=== PATIENT | female | born 1970 | race Caucasian/White ===

== ENCOUNTER 2017-01-29 19:43 | Emergency (ER) | payer OTHER ==
--- NOTE | 2017-01-29 20:18 | DIAGNOSTIC IMAGING REPORT ---
PROCEDURE: XR KNEE 4 VIEWS - RIGHT INDICATION: TRAUMA/INJURY TECHNIQUE: Four views. COMPARISON: None. FINDINGS: Osseous structures and joint spaces are normal. No effusion. IMPRESSION: 1. Normal left knee.
--- NOTE | 2017-01-29 21:07 | ED NURSING NOTES ---
Clinical Report - Nurses [facility] [address] [place] [address] 01/29/2017 19:43 Patient: GENNA REGALADO TRIAGE Triage time 1950. Acuity: LEVEL 4. Chief Complaint: INJURY TO RIGHT KNEE. 19:50. --20:11 Sindi Clark R.N. 19:50 01/29/17. BP: 126/61. HR: 80. RR: 16. O2 saturation: 98%. Temp: 98.2 F. Pain level now: 09/26. Additional comments: 3-sitting, 9-standing. --20:11 Sindi Clark R.N. Weight: 78.4 kg stated. Height/Length: 58 inches Per Patient. BMI: 36.1. --20:01 Sindi Clark R.N. Medications MetFORMIN HCl Oral (Tablet 500 mg) 1 tablet, 2x a day. --20:03 Sindi Clark R.N. Methocarbamol Oral 750 mg, 4x a day. --20:04 Sindi Clark R.N. Estradiol Oral (Tablet 1 mg) 1 tablet, daily. Multivitamins Oral 1 pill, daily. --20:04 Sindi Clark R.N. Allergies Aleve.(rash) --20:09 Sindi Clark R.N. silver nitrate- continued damage to tissue (kept burning). --20:10 Sindi Clark R.N. The following entry was struck by Sindi Clark R.N., 20:09 (01/29/17) Reason - other. <<STRICKEN ENTRY-- Sulfa Antibiotics. (rash) --20:08 Sindi Clark R.N. --END STRIKE>>. History Arrived by private vehicle. Historian: patient. Accompanied by spouse. Primary physician (stephani). This occurred (1600). Mechanism of injury: sustained a twisting injury. ( jumped up to touch door frame, came down on knee with twisting motion. c/o knee pain with swelling, hurts to walk on it). She has had trouble walking. PAST MEDICAL HX: Diabetes mellitus. ( migraines). SURGERY HX: . Cholecystectomy. Had hysterectomy. Oophorectomy. SOCIAL HX: Light tobacco smoker (cigarette)- less than 1/2 a pack per day. No alcohol use or drug use. --20:11 Sindi Clark R.N. Interventions ID band on patient. To treatment room. --20:11 Sindi Clark R.N. PHYSICAL ASSESSMENT 19:50. Ambulatory to room. Patient gowned. GENERAL / NEURO / PSYCH: Oriented X 4. Alert. Appears in pain. EXTREMITIES: Pain with weight bearing. Limping gait. Right knee: tenderness and swelling. Limited ROM secondary to pain. SKIN: Skin is warm and dry. --20:12 Sindi Clark R.N. NURSING PROGRESS NOTES 19:50. Cold pack applied. Reassurance given. Patient identifiers checked. Call light placed in reach. Side rails up. Bed placed in lowest position. Patient ready for evaluation- chart flagged. --20:11 Sindi Clark R.N. 20:03. ( port x-ray at bedside to do knee films). --20:11 Sindi Clark R.N. 21:05 01/29/2017 Ultram (TraMADol HCl) PO Tablets 50 mg given. Allergies verified, confirmed 5 rights and sedative warning given to the patient. --21:11 Sindi Clark R.N. 21:30. 6 inch rachelle bandage applied to right knee; distal pulses intact, sensation intact and motor function within normal limits. --22:36 Sindi Clark R.N. DISPOSITION / DISCHARGE 21:45. Condition at departure: stable. No learning barriers present. Discharge instructions provided and reviewed with the patient and spouse. Reviewed medication(s) (ultram, motrin). Treatments reviewed (ice, rachelle rest). Patient and spouse verbalized understanding. Written instructions provided in Monegasque. The patient was discharged home and accompanied by spouse. She left the Emergency Department in a wheelchair and via private vehicle. Spouse driving. --22:39 Sindi Clark R.N. 21:45 01/29/17. BP: 120/68. HR: 78. RR: 18. O2 saturation: 97%. Temp: deferred. Pain level now: 09/26. --22:39 Sindi Clark R.N. Locked/Released at 01/29/2017 22:39 by Sindi Clark R.N.
--- NOTE | 2017-01-29 21:07 | ED CLINICAL REPORT ---
Clinical Report - Physicians/Mid Levels [facility] [address] [place] [address] 01/29/2017 19:43 Patient: GENNA REGALADO Time Seen: 19:53; upon arrival, initial patient contact, initial documentation, patient care assumed. Arrived- By private vehicle. Historian- patient. HISTORY OF PRESENT ILLNESS Chief Complaint: Injury to right knee. The injury happened today. Occurred at work. ( jumped up in air and when she landed she felt pain in her knee). Patient is experiencing moderate pain. Patient denies injury to the head or neck. No other injury. REVIEW OF SYSTEMS The patient complains of pain on weight bearing. No swelling, tingling, weakness, numbness or suspected foreign body. No skin laceration. All systems otherwise negative, except as recorded above. PAST HISTORY See nurses notes. Diabetes mellitus. Migraine headaches. Surgeries: Had hysterectomy. Oophorectomy. SOCIAL HISTORY Light tobacco smoker. No alcohol use or drug use. No recent travel. Is a local resident. FAMILY HISTORY No significant family medical history. ADDITIONAL NOTES The nursing notes have been reviewed with agreement regarding the chief complaint, HPI, ROS, PMH and patient medications and allergies. PHYSICAL EXAM Appearance: Alert. Oriented X3. No acute distress. Head: Head atraumatic. Eyes: Pupils equal, round and reactive to light. Eyes normal inspection. Respiratory: No respiratory distress. Skin: Skin intact. Skin warm and dry. Normal skin color. Normal skin turgor. Extremities: Right knee: mild tenderness located in the infrapatellar area. Neurovascular intact distally. No ligamentous laxity present. No joint effusion. No erythema, swelling, laceration, abrasion or ecchymosis. No puncture wound, foreign body or deformity. No limitation in ROM. Lower extremity exam otherwise negative. Extremities otherwise negative. Neuro, Vascular and Tendons: Vascular status intact. Sensation intact. Motor intact. Tendon function intact. Neuro: Oriented X 3. No motor deficit. No sensory deficit. Note: isolated injury to knee. LABS, X-RAYS, AND EKG X-Rays: Right knee negative. Rt Knee X-ray: (IMPRESSION: 1. Normal left knee. Electronically Final signed by:Javon Maynard MD 01/29/2017 8:17:35 PM). PROGRESS AND PROCEDURES Patient counseled in person regarding the patient's stable condition, test results and diagnosis. 20:19. Differential Diagnosis: I considered fracture, stress fracture, bone contusion, sprain, hyperextension, dislocation, meniscus tear, anterior cruciate ligament tear, ligament tear, soft tissue injury, soft tissue hematoma, myositis, fasciitis, tendonitis and bursitis as a possible cause of lower extremity pain in this patient. This is a partial list of diagnoses considered. Above considerations are based on history, physical exam, reassessment and X-Ray data. Differential diagnosis was discussed with patient. Disposition: Discharged home in good and improved condition (21:07). Condition: good and stable. CLINICAL IMPRESSION Sprain of the anterior cruciate ligament of the left knee. INSTRUCTIONS Apply ice for 20 minutes four times a day for one days until better. Don't apply ice directly to skin. Wear elastic wrap (Eladio wrap) as directed for one weeks until better. Elevate affected areas above chest level for one days until better. Warnings: GENERAL WARNINGS: Return or contact your physician immediately if your condition worsens or changes unexpectedly, if not improving as expected, or if other problems arise. Specifically return if problem worsens. Prescription Medications: Ultram 50 mg tablets: take 1-2 orally every 6 hours as needed for pain. Dispense twenty (20). No refills. Substitution is permissible. Follow-up: Follow up with your doctor in about one week as needed. Call for an appointment. Summary of care provided to patient. Understanding of the discharge instructions verbalized by patient. (Electronically signed by Ranjana Fernandez A.R.N.P. 01/29/2017 21:44)
--- NOTE | 2017-01-29 21:07 | ED ORDER SUMMARY ---
..... Patient: GENNA REGALADO OrderSheet [facility] VisitID: [id number] [address] [place] [address] 46y, F Registration Date/Time: 01/29/2017 ORDER SHEET Weight: 78.4 kg (stated) Allergies: Aleve, silver nitrate- continued damage to tissue (kept burning) GENERAL ORDERS: Knee 4V Right Urgent (20:00 01/29/2017 HBivens A.R.N.P.) (Ack 20:04 RKaruga) (20:08 MCampbell) Eladio Wrap (20:49 01/29/2017 HBivens A.R.N.P.) (21:11 DDean R.N.) MEDICATION ORDERS: Ultram PO 50 mg (NOW) (20:49 01/29/2017 HBivens A.R.N.P.) (Ack 21:03 DDean R.N.) (21:11 DDean R.N.) IV FLUIDS: ORDER SHEET NOTES: [Electronically signed by Ranjana Fernandez.R.N.P. (21:44 01/29/2017)] [Electronically signed by Sindi Clark R.N. (22:39 01/29/2017)] [Electronically locked/signed by Sindi Clark R.N. (22:39 01/29/2017)]
--- NOTE | 2017-01-29 21:07 | ED ORDER SUMMARY ---
..... Patient: GENNA REGALADO OrderSheet [facility] VisitID: [id number] [address] [place] [address] 46y, F Registration Date/Time: 01/29/2017 ORDER SHEET Weight: 78.4 kg (stated) Allergies: Aleve, silver nitrate- continued damage to tissue (kept burning) GENERAL ORDERS: Knee 4V Right Urgent (20:00 01/29/2017 HBivens A.R.N.P.) (Ack 20:04 RKaruga) (20:08 MCampbell) Eladio Wrap (20:49 01/29/2017 HBivens A.R.N.P.) (21:11 DDean R.N.) MEDICATION ORDERS: Ultram PO 50 mg (NOW) (20:49 01/29/2017 HBivens A.R.N.P.) (Ack 21:03 DDean R.N.) (21:11 DDean R.N.) IV FLUIDS: ORDER SHEET NOTES: [Electronically signed by Ranjana Fernandez.R.N.P. (21:44 01/29/2017)] [Electronically signed by Sindi Clark R.N. (22:39 01/29/2017)] [Electronically locked/signed by Sindi Clark R.N. (22:39 01/29/2017)]
--- NOTE | 2017-01-29 22:39 | ED MED RECONCILIATION SUMMARY ---
Patient: GENNA REGALADO Medication Reconciliation Report [facility] VisitID: [id number] [address] [place] [address] 46y, F Registration Date/Time: 01/29/2017 Weight: 78.4 kg Height/Length: 58 in. BMI: 36.1 ALLERGIES: Aleve, silver nitrate- continued damage to tissue (kept burning) The patient's Home Medications are listed below: THE FOLLOWING MEDICATIONS NEED TO BE RECONCILED: Estradiol Oral (1 mg) 1 tablet, daily MetFORMIN HCl Oral (500 mg) 1 tablet, 2x a day Methocarbamol Oral 750 mg, 4x a day Multivitamins Oral 1 pill, daily The source(s) of the original Home Medication information: Not obtained. The following Medications were given to the patient in the Emergency Department: Ultram [PO] PO 50 mg, administered: 01/29/2017 9:05:00 PM The following Medications were prescribed to the patient: Ultram 50 mg tablets: take 1-2 orally every 6 hours as needed for pain. Dispense twenty (20). No refills. Substitution is permissible. -- Ranjana Fernandez A.R.N.P.
--- NOTE | 2017-01-29 22:39 | ED DISCHARGE INSTRUCTIONS ---
Patient: GENNA REGALADO General Instructions [facility] VisitID: [id number] [address] [place] [address] 46y, F Registration Date/Time: 01/29/2017 Sprain of the anterior cruciate ligament of the left knee. INSTRUCTIONS Apply ice for 20 minutes four times a day for one days until better. Don't apply ice directly to skin. Wear elastic wrap (Eladio wrap) as directed for one weeks until better. Elevate affected areas above chest level for one days until better. Warnings: GENERAL WARNINGS: Return or contact your physician immediately if your condition worsens or changes unexpectedly, if not improving as expected, or if other problems arise. Specifically return if problem worsens. Prescription Medications: Ultram 50 mg tablets: take 1-2 orally every 6 hours as needed for pain. Dispense twenty (20). No refills. Substitution is permissible. Follow-up: Follow up with your doctor in about one week as needed. Call for an appointment. Summary of care provided to patient. Understanding of the discharge instructions verbalized by patient. ADDITIONAL INFORMATION Sprain, Knee A sprain is an injury to the ligaments or capsule that holds a joint together. There are no broken bones. Most sprains take three to six weeks to heal. If the ligament is completely torn (severe sprain), it can take months to recover from. Most knee sprains are treated with a splint, knee immobilizer or elastic wrap for support. Severe sprains may require surgery. Home care The following guidelines will help you care for your injury at home: Stay off the injured leg as much as possible until you can walk on it without pain. If you have a lot of pain with walking, crutches or a walker may be prescribed. (These can be rented or purchased at many pharmacies and surgical or orthopedic supply stores). Follow your doctor's advice regarding when to begin bearing weight on that leg. Keep your leg elevated to reduce pain and swelling. When sleeping, place a pillow under the injured leg. When sitting, support the injured leg so it is level with your waist. This is very important during the first 48 hours. Apply an ice pack (ice cubes in a plastic bag, wrapped in a towel) over the injured area for 20 minutes every 12 hours the first day. You can place the ice pack directly over the splint. If a Velcro knee immobilizer was applied, you can open this to apply the ice pack directly to the knee. Continue with ice packs 34 times a day for the next two days, then as needed for the relief of pain and swelling. You may use acetaminophen or ibuprofen to control pain, unless another pain medicine was prescribed. If you have chronic liver or kidney disease or ever had a stomach ulcer or GI bleeding, talk with your doctor before using these medicines. If you were given a splint, keep it completely dry at all times. Bathe with your splint out of the water, protected with a large plastic bag, rubber-banded at the top end. If a fiberglass splint gets wet, you can dry it with a hair-dryer. If you have a Velcro knee immobilizer, you can remove this to bathe, unless told otherwise. Follow-up care Follow up with your doctor as advised. Any X-rays you had today dont show any broken bones, breaks, or fractures. Sometimes fractures dont show up on the first X-ray. Bruises and sprains can sometimes hurt as much as a fracture. These injuries can take time to heal completely. If your symptoms dont improve or they get worse, talk with your doctor. You may need a repeat X-ray. When to seek medical care Get prompt medical attention if any of the following occur: The plaster cast or splint becomes wet or soft The fiberglass cast or splint remains wet for more than 24 hours Pain or swelling increases Toes become cold, blue, numb or tingly Eladio Wrap An "Eladio Bandage" refers to any elastic bandage wrap (2-6" wide). This is used to apply support and compression to an arm or leg. It will help prevent or reduce swelling also. When applying the bandage, it should not be stretched too tightly. A tight Eladio Wrap will reduce circulation and cause tingling or numbness in the hand or foot. It may increase the pain under the bandage. If you get these symptoms, remove the wrap and rest the limb. Symptoms should go away within 1-2 hours. Once symptoms go away, reapply the bandage with less stretch. If symptoms do not go away after 1-2 hours with the bandage off, call your doctor or return to this facility promptly. Tramadol Hydrochloride Oral tablet What is this medicine? TRAMADOL (TRA ma dole) is a pain reliever. It is used to treat moderate to severe pain in adults. How should I use this medicine? Take this medicine by mouth with a full glass of water. Follow the directions on the prescription label. If the medicine upsets your stomach, take it with food or milk. Do not take more medicine than you are told to take. Talk to your blender machine operator regarding the use of this medicine in children. Special care may be needed. What side effects may I notice from receiving this medicine? Side effects that you should report to your doctor or health pet care assistant as soon as possible: allergic reactions like skin rash, itching or hives, swelling of the face, lips, or tongue breathing difficulties, wheezing confusion itching light headedness or fainting spells redness, blistering, peeling or loosening of the skin, including inside the mouth seizures Side effects that usually do not require medical attention (report to your doctor or health pet care assistant if they continue or are bothersome): constipation dizziness drowsiness headache nausea, vomiting What may interact with this medicine? Do not take this medicine with any of the following medications: MAOIs like Carbex, Eldepryl, Marplan, Nardil, and Parnate This medicine may also interact with the following medications: alcohol or medicines that contain alcohol antihistamines benzodiazepines bupropion carbamazepine or oxcarbazepine clozapine cyclobenzaprine digoxin furazolidone linezolid medicines for depression, anxiety, or psychotic disturbances medicines for migraine headache like almotriptan, eletriptan, frovatriptan, naratriptan, rizatriptan, sumatriptan, zolmitriptan medicines for pain like pentazocine, buprenorphine, butorphanol, meperidine, nalbuphine, and propoxyphene medicines for sleep muscle relaxants naltrexone phenobarbital phenothiazines like perphenazine, thioridazine, chlorpromazine, mesoridazine, fluphenazine, prochlorperazine, promazine, and trifluoperazine procarbazine warfarin What if I miss a dose? If you miss a dose, take it as soon as you can. If it is almost time for your next dose, take only that dose. Do not take double or extra doses. Where should I keep my medicine? Keep out of the reach of children. Store at room temperature between 15 and 30 degrees C (59 and 86 degrees F). Keep container tightly closed. Throw away any unused medicine after the expiration date. What should I tell my health care provider before I take this medicine? They need to know if you have any of these conditions: brain tumor depression drug abuse or addiction head injury if you frequently drink alcohol containing drinks kidney disease or trouble passing urine liver disease lung disease, asthma, or breathing problems seizures or epilepsy suicidal thoughts, plans, or attempt; a previous suicide attempt by you or a family member an unusual or allergic reaction to tramadol, codeine, other medicines, foods, dyes, or preservatives or trying to get breast-feeding What should I watch for while using this medicine? Tell your doctor or health pet care assistant if your pain does not go away, if it gets worse, or if you have new or a different type of pain. You may develop tolerance to the medicine. Tolerance means that you will need a higher dose of the medicine for pain relief. Tolerance is normal and is expected if you take this medicine for a long time. Do not suddenly stop taking your medicine because you may develop a severe reaction. Your body becomes used to the medicine. This does NOT mean you are addicted. Addiction is a behavior related to getting and using a drug for a non-medical reason. If you have pain, you have a medical reason to take pain medicine. Your doctor will tell you how much medicine to take. If your doctor wants you to stop the medicine, the dose will be slowly lowered over time to avoid any side effects. You may get drowsy or dizzy. Do not drive, use machinery, or do anything that needs mental alertness until you know how this medicine affects you. Do not stand or sit up quickly, especially if you are an older patient. This reduces the risk of dizzy or fainting spells. Alcohol can increase or decrease the effects of this medicine. Avoid alcoholic drinks. You may have constipation. Try to have a bowel movement at least every 2 to 3 days. If you do not have a bowel movement for 3 days, call your doctor or health pet care assistant. Your mouth may get dry. Chewing sugarless gum or sucking hard candy, and drinking plenty of water may help. Contact your doctor if the problem does not go away or is severe. You have been given the following additional information: Knee Sprain Eladio Wrap Tramadol Hydrochloride Oral tablet (Electronically signed by Ranjana Fernandez A.R.N.P. 01/29/2017 21:44)
--- NOTE | 2017-01-29 22:39 | ED MAR SUMMARY ---
..... Medication Administration Record [facility] [address] [place] [address] Patient: GENNA REGALADO Visit ID: [id number] 46y, F Weight: 78.4 kg Height/Length: 58 in BMI: 36.1 ALLERGIES: Aleve, silver nitrate- continued damage to tissue (kept burning) Given 21:05 01/29/2017 Eduardo, Sindi RJose ManuelN. Medication Administered: ULTRAM [PO] (TRAMADOL HCL), Dose: 50 mg Tablets PO. Medication Ordered: Ultram PO 50 mg (NOW).
--- NOTE | 2017-01-29 22:39 | ED MED RECONCILIATION SUMMARY ---
Patient: GENNA REGALADO Medication Reconciliation Report [facility] VisitID: [id number] [address] [place] [address] 46y, F Registration Date/Time: 01/29/2017 Weight: 78.4 kg Height/Length: 58 in. BMI: 36.1 ALLERGIES: Aleve, silver nitrate- continued damage to tissue (kept burning) The patient's Home Medications are listed below: THE FOLLOWING MEDICATIONS NEED TO BE RECONCILED: Estradiol Oral (1 mg) 1 tablet, daily MetFORMIN HCl Oral (500 mg) 1 tablet, 2x a day Methocarbamol Oral 750 mg, 4x a day Multivitamins Oral 1 pill, daily The source(s) of the original Home Medication information: Not obtained. The following Medications were given to the patient in the Emergency Department: Ultram [PO] PO 50 mg, administered: 01/29/2017 9:05:00 PM The following Medications were prescribed to the patient: Ultram 50 mg tablets: take 1-2 orally every 6 hours as needed for pain. Dispense twenty (20). No refills. Substitution is permissible. -- Ranjana Fernandez A.R.N.P.
--- NOTE | 2017-01-29 22:39 | ED MAR SUMMARY ---
..... Medication Administration Record [facility] [address] [place] [address] Patient: GENNA REGALADO Visit ID: [id number] 46y, F Weight: 78.4 kg Height/Length: 58 in BMI: 36.1 ALLERGIES: Aleve, silver nitrate- continued damage to tissue (kept burning) Given 21:05 01/29/2017 Eduardo, Sindi RJose ManuelN. Medication Administered: ULTRAM [PO] (TRAMADOL HCL), Dose: 50 mg Tablets PO. Medication Ordered: Ultram PO 50 mg (NOW).
== END 2017-01-29 21:45 | disposition home or self-care (01) ==
LOC: ED SRH 19:43
DX: S83.512A Sprain of anterior cruciate ligament of left knee, initial encounter (principal); F17.210 Nicotine dependence, cigarettes, uncomplicated; X50.0XXA Overexertion from strenuous movement or load, initial encounter; Y93.89 Activity, other specified; Y92.9 Unspecified place or not applicable; Y99.0 Civilian activity done for income or pay; E11.9 Type 2 diabetes mellitus without complications